=== PATIENT | female | born 1965 | race Caucasian/White ===

== ENCOUNTER 2019-01-23 06:23 | Day surgery (SDC) | payer OTHER ==
[~2019-01-23 06:23] MED LIST: NASONEX17 GM NASAL; SYNTHROID75 MCG PO; ZIAC 2.5-6.251 EACH PO
== END 2019-01-23 12:00 | disposition home or self-care (01) ==
LOC: CIR.AMB 06:23
DX: D25.0 Submucous leiomyoma of uterus (principal)